=== PATIENT | female | born 1970 | race Caucasian/White ===

== ENCOUNTER 2016-08-01 14:08 | Emergency (ER) | payer SELFPAY ==
[~2016-08-01 14:08] MED LIST: ELIQUIS5 MG PO
[2016-08-01 15:42] LABS: HEMOGLOBIN 16.2 gm/dl (12.3-15.3); RED BLOOD COUNT 5.39 M/UL (4.00-5.10)
== END 2016-08-01 18:39 | disposition home or self-care (01) ==
LOC: ER1 14:08 → ZEROF 17:46 → ER1 17:46
PROVIDERS: Emergency Medicine
DX: R07.9 Chest pain, unspecified (principal); Z86.711 Personal history of pulmonary embolism
CPT/HCPCS: 36415; 71020; 80053; 83690; 84484; 85025; 85379; 93005; 96374; 96375; 99285; C9113; J2405